=== PATIENT | male | born 1985 | race Two or more races ===

== ENCOUNTER 2017-01-19 21:22 | Emergency (ER) | payer BC ==
--- NOTE | 2017-01-19 21:37 | EDM.PDOC ---
ED HPI GENERAL MEDICAL PROBLEM - General Chief Complaint: Upper Extremity Injury/Pain Stated Complaint: SMASHED RT HAND Time Seen by Provider: 01/19/17 21:35 Source of Information: Reports: Patient - History of Present Illness INITIAL COMMENTS - FREE TEXT/NARRATIVE: HISTORY AND PHYSICAL: History of present illness: []Patient was placing alternator in a vehicle, he dropped alternated on his right thumb this morning he presents with 4 out of 10 pain to the right thumb Distal phalanx on thumb is reddened with small abrasion on the lateral border small subungual hematoma No fever nausea vomiting chills sweats no other injury reported by patient Review of systems: As per history of present illness and below otherwise all systems reviewed and negative. Past medical history: As per history of present illness and as reviewed below otherwise noncontributory. Surgical history: As per history of present illness and as reviewed below otherwise noncontributory. Social history: No reported history of drug or alcohol abuse. Family history: As per history of present illness and as reviewed below otherwise noncontributory. Physical exam: HEENT: Atraumatic, normocephalic, pupils reactive, negative for conjunctival pallor or scleral icterus, mucous membranes moist, throat clear, neck supple, nontender, trachea midline. Lungs: Clear to auscultation, breath sounds equal bilaterally, chest nontender. Heart: S1S2, regular, negative for clicks, rubs, or JVD. Abdomen: Soft, nondistended, nontender. Negative for masses or hepatosplenomegaly. Negative for costovertebral tenderness. Pelvis: Stable nontender. Genitourinary: Deferred. Rectal: Deferred. Extremities: Atraumatic, negative for cords or calf pain. Neurovascular unremarkable. Right hand unaffected above the wrist entirely neurovascularly intact right thumb very small subungual hematoma with abrasion to the lateral border of thumb distal phalanx is mildly reddened and swollen Neuro: Awake, alert, oriented. Cranial nerves II through XII unremarkable. Cerebellum unremarkable. Motor and sensory unremarkable throughout. Exam nonfocal. Diagnostics: X-ray thumb complete Therapeutics: Tetanus status is updated secondary to abrasion []Rest ice ibuprofen Splint for comfort Impression: []Subungual hematoma Contusion Abrasion Definitive disposition and diagnosis as appropriate pending reevaluation and review of above. right thumb Pain Score (Numeric/FACES): 5 - Related Data Allergies Allergy/AdvReac Type Severity Reaction Status Date / Time No Known Allergies Allergy Verified 01/19/17 21:29 Home Meds: Home Meds . [No Known Home Meds] 02/06/16 [History] Past Medical History HEENT History: Reports: None Cardiovascular History: Reports: None Respiratory History: Reports: None Gastrointestinal History: Reports: None Genitourinary History: Reports: None Musculoskeletal History: Reports: Back Pain, Chronic, Fracture Neurological History: Reports: Other (See Below) Other Neuro History: slipped disc in lumbar spine, recieved injection on 2015. Psychiatric History: Reports: None Endocrine/Metabolic History: Reports: None Hematologic History: Reports: None Immunologic History: Reports: None Oncologic (Cancer) History: Reports: None Dermatologic History: Reports: None - Infectious Disease History Infectious Disease History: Reports: Chicken Pox Other Infectious Disease History: childhood. - Past Surgical History Musculoskeletal Surgical History: Reports: Other (See Below) Social & Family History - Family History Family Medical History: Noncontributory - Tobacco Use Smoking Status *Q: Never Smoker Years of Tobacco use: 4 Packs/Tins Daily: 0 - Recreational Drug Use Recreational Drug Use: No Review of Systems - Review of Systems Review Of Systems: ROS reveals no pertinent complaints other than HPI. ED EXAM, GENERAL - Physical Exam Exam: See Below Course - Vital Signs Last Recorded V/S: Last Vital Signs Temp 36.3 C 01/19/17 21:30 Pulse 82 01/19/17 21:30 Resp 16 01/19/17 21:30 BP 133/77 01/19/17 21:30 Pulse Ox 98 01/19/17 21:30 - Orders/Labs/Meds Orders: Active Orders 24 hr Category Date Time Status Vaccines to be Administered [RC] PER UNIT ROUTINE Care 01/19/17 21:49 Active Fingers Thumb Rt F5 [CR] Stat Exams 01/19/17 21:34 Taken Meds: Medications Discontinued Medications Generic Name Dose Route Start Last Admin Trade Name Freq PRN Reason Stop Dose Admin Diphtheria/Tetanus/Acell Pertussis 0.5 ml 01/19/17 21:49 Adacel IM 01/19/17 21:50 .ONCE ONE Departure - Departure Time of Disposition: 22:25 Disposition: Home, Self-Care 01 Condition: Good Clinical Impression: Contusion - Discharge Information Forms: ED Department Discharge Additional Instructions: Rest Ice 20 minute intervals 3 times daily as needed Ibuprofen 400 mg 3 times daily 7-10 days Splint for comfort Follow-up with primary care as needed Return if symptoms persist or worsen The following information is given to patients seen in the emergency department who are being discharged to home. This information is to outline your options for follow-up care. We provide all patients seen in our emergency department with a follow-up referral. The need for follow-up, as well as the timing and circumstances, are variable depending upon the specifics of your emergency department visit. If you don't have a primary care physician on staff, we will provide you with a referral. We always advise you to contact your personal physician following an emergency department visit to inform them of the circumstance of the visit and for follow-up with them and/or the need for any referrals to a consulting specialist. The emergency department will also refer you to a specialist when appropriate. This referral assures that you have the opportunity for follow-up care with a specialist. All of these measure are taken in an effort to provide you with optimal care, which includes your follow-up. Under all circumstances we always encourage you to contact your private physician who remains a resource for coordinating your care. When calling for follow-up care, please make the office aware that this follow-up is from your recent emergency room visit. If for any reason you are refused follow-up, please contact the [facility] emergency department at and asked to speak to the emergency department charge nurse. - My Orders Last 24 Hours: My Active Orders 01/19/17 21:34 Fingers Thumb Rt F5 [CR] Stat 01/19/17 21:49 Vaccines to be Administered [RC] PER UNIT ROUTINE - Assessment/Plan Last 24 Hours: My Active Orders 01/19/17 21:34 Fingers Thumb Rt F5 [CR] Stat 01/19/17 21:49 Vaccines to be Administered [RC] PER UNIT ROUTINE
[2017-01-19] MEDS ORDERED: Diphtheria,Pertussis(Acell),Tetanus Vaccine 0.5 ML Syringe IM ONE (21:49)
[2017-01-19 22:53] VITALS: BP 133/76
--- NOTE | 2017-01-20 08:17 | CR ---
EXAM DATE: 01/19/17 PATIENT'S AGE: 31 Patient: ZAK GARRETT Facility: [place], [place] Site . Site : 1985 Study: XRay Extremity RT thumb [id number]/19/2017 9:54:10 PM Ordering Physician: Elver Rajput Final Report: INDICATION: crushing injury TECHNIQUE: Three views of the right thumb COMPARISON: None FINDINGS: Bones: No fractures or bone lesions. Joint spaces: Unremarkable. Soft tissues: Radiopaque sliver along the dorsal tip of the right thumb. IMPRESSION: Radiopaque sliver along the dorsal tip of the right thumb. Please correlate for foreign body. No acute bony abnormality. . Dictated by Fredo Warner MD @ 01/19/2017 10:06:30 PM Dictated by: Fredo Warner MD @ 01/19/2017 22:06:36 (Electronic Signature) Report Signed by Proxy. BOBO
== END 2017-01-19 22:48 | disposition home or self-care (01) ==
LOC: MW.ED 21:22
DX: S60.111A Contusion of right thumb with damage to nail, initial encounter (principal); Z23 Encounter for immunization; W20.8XXA Other cause of strike by thrown, projected or falling object, initial encounter
CPT/HCPCS: 73140-26-F5; 73140-F5; 90471; 90715; 99283; 99283-25